=== PATIENT | male | born 1960 | race Two or more races ===

== ENCOUNTER → 2022-03-11 | Emergency (ER) | payer OTHER, MEDICARE ==
[~2022-03-11] VITALS: Ht 160 cm; Wt 63.6 kg
[~2022-03-11] MED LIST: HYDR1TAB97 PO; KETOROLAC TROMETH 60MG/2ML VIAL IV ONE; ONDA-144 PO; ONDANSETRON HCL 4 MG/2 ML VIAL IV ONE; PIPERACILLIN-TAZOB 3.375GM 100 ML IV ONE; PROP10TA57 PO; SODIUM CHLORIDE 0.9% 1,000 ML IV ONE; TAM04C PO; TAMSULOSIN HYDROCHLORIDE 0.4 MG CAP PO ONE; fentaNYL CITRATE 100 MCG/2 ML VL IV ONE
[2022-03-11 19:40] LABS: Urine Amorphous Crystal FEW /hpf (None Seen); Urine Bacteria NONE SEEN /hpf (None Seen); Urine Blood 1+ /uL (Negative); Urine Specific Gravity 1.012 (1.001-1.035); Urine WBC <1 /hpf (0 - 3)
[2022-03-11 20:52] LABS: Basophils # (auto) 0 10 ^3/uL (0-0.2); Basophils % (auto) 0.2 % (0.0-2.0); Eosinophils # (auto) 0.1 10 ^3/uL (0-0.8); Eosinophils % (auto) 0.3 % (0.0-7.0); Hematocrit 48.9 % (41.0-53.0); Hemoglobin 16.7 g/dL (13.5-17.5); Lymphocytes # (auto) 5.7 10 ^3/uL (0.4-5.4); Lymphocytes % (auto) 26.3 % (10.0-50.0); Mean Corpuscular Hemoglobin 30.5 pg (28.0-32.0); Mean Corpuscular Hgb Conc. 34.1 g/dL (32.0-36.0); Mean Corpuscular Volume 89.7 fL (80.0-100.0); Monocytes % (auto) 4.7 % (0.0-12.0); Neutrophils # (auto) 14.8 10 ^3/uL (1.6-8.6); Neutrophils % (auto) 68.5 % (37.0-80.0); Nucleated Red Blood Cells % 0.2 %; Red Blood Cells 5.46 10^6/uL (4.5-5.90); Red Cell Distribution Width 13.7 % (11.8-14.3); White Blood Cell 21.6 10^3/uL (4.4-10.8)
[2022-03-11 20:57] LABS: Albumin 4.3 g/dL (3.4-5.0); Calcium 8.8 mg/dL (8.5-10.1); Potassium 4.1 mmol/L (3.5-5.1)
[2022-03-11 21:01] LABS: BUN/Creatinine Ratio 19.8; Bilirubin, Total 1.6 mg/dL (0.2-1.0); Total Protein 7.4 g/dL (6.4-8.2)
[2022-03-11 21:43] VITALS: BP 168/99
== END | disposition home or self-care (01) ==
LOC: EDUNIT# 18:33 → EDBD 18:49 → ER 18:49
DX: N13.1 Hydronephrosis with ureteral stricture, not elsewhere classified (principal); N20.0 Calculus of kidney; D72.829 Elevated white blood cell count, unspecified; I10 Essential (primary) hypertension; Z79.899 Other long term (current) drug therapy; Z90.89 Acquired absence of other organs
CPT/HCPCS: 36415; 74176; 80053; 81001; 83605; 83690; 84484; 85025; 93005; 96361; 96365; 96366; 96375; 96376; 99285; J1885; J2405; J2543; J3010; J7030

== ENCOUNTER 2022-03-12 08:28 | Inpatient (IN) | payer OTHER, MEDICARE ==
[~2022-03-12] VITALS: Ht 170.2 cm; Wt 66.7 kg
[~2022-03-12 08:28] MED LIST changes: -KETOROLAC TROMETH 60MG/2ML VIAL IV ONE; -ONDANSETRON HCL 4 MG/2 ML VIAL IV ONE; -PIPERACILLIN-TAZOB 3.375GM 100 ML IV ONE; -PROP10TA57 PO; -SODIUM CHLORIDE 0.9% 1,000 ML IV ONE; -TAMSULOSIN HYDROCHLORIDE 0.4 MG CAP PO ONE; -fentaNYL CITRATE 100 MCG/2 ML VL IV ONE
[2022-03-12 09:16] LABS: Basophils # (auto) 0.1 10 ^3/uL (0-0.2); Basophils % (auto) 0.4 % (0.0-2.0); Eosinophils # (auto) 0 10 ^3/uL (0-0.8); Eosinophils % (auto) 0.3 % (0.0-7.0); Hematocrit 48.5 % (41.0-53.0); Hemoglobin 16.4 g/dL (13.5-17.5); Lymphocytes # (auto) 2.6 10 ^3/uL (0.4-5.4); Lymphocytes % (auto) 17.7 % (10.0-50.0); Mean Corpuscular Hemoglobin 30.9 pg (28.0-32.0); Mean Corpuscular Hgb Conc. 33.9 g/dL (32.0-36.0); Mean Corpuscular Volume 91.3 fL (80.0-100.0); Monocytes # (auto) 1.2 10 ^3/uL (0-1.3); Monocytes % (auto) 7.8 % (0.0-12.0); Neutrophils # (auto) 10.9 10 ^3/uL (1.6-8.6); Neutrophils % (auto) 73.8 % (37.0-80.0); Nucleated Red Blood Cells % 0.1 %; Red Blood Cells 5.31 10^6/uL (4.5-5.90); Red Cell Distribution Width 14.3 % (11.8-14.3); White Blood Cell 14.8 10^3/uL (4.4-10.8)
[2022-03-12] MEDS ORDERED: IOHEXOL 300 MG/ML 100ML BOTTLE IJ ONE (09:30)
[2022-03-12 09:36] LABS: Albumin 4.2 g/dL (3.4-5.0); BUN/Creatinine Ratio 18.1; Calcium 8.8 mg/dL (8.5-10.1); Potassium 4.5 mmol/L (3.5-5.1)
[2022-03-12 09:39] LABS: Bilirubin, Total 1.2 mg/dL (0.2-1.0); Total Protein 7.8 g/dL (6.4-8.2)
[2022-03-12] MEDS ORDERED: HYDROcodone-ACET 5/325MG TAB PO ONE (10:45)
[2022-03-12] MEDS ORDERED: LACTATED RINGER'S 1,000 ML IV ONE (10:45)
[2022-03-12] MEDS ORDERED: cefTRIAXone 1GM/50ML D5W 50 ML IV ONE (10:45)
[2022-03-12] MEDS ORDERED: ACETAMINOPHEN 325 MG TAB PO ONE (12:15)
[2022-03-12] MEDS ORDERED: ACETAMINOPHEN 325 MG TAB PO PRN (14:00)
[2022-03-12] MEDS: SODIUM CHLORIDE 0.9% 1,000 ML IV SCH (14:17)
[2022-03-13 06:16] LABS: Basophils # (auto) 0 10 ^3/uL (0-0.2); Basophils % (auto) 0.2 % (0.0-2.0); Eosinophils # (auto) 0 10 ^3/uL (0-0.8); Eosinophils % (auto) 0.5 % (0.0-7.0); Hematocrit 44.7 % (41.0-53.0); Hemoglobin 14.9 g/dL (13.5-17.5); Lymphocytes # (auto) 1.6 10 ^3/uL (0.4-5.4); Lymphocytes % (auto) 19.1 % (10.0-50.0); Mean Corpuscular Hemoglobin 30.5 pg (28.0-32.0); Mean Corpuscular Hgb Conc. 33.4 g/dL (32.0-36.0); Mean Corpuscular Volume 91.2 fL (80.0-100.0); Monocytes # (auto) 0.6 10 ^3/uL (0-1.3); Monocytes % (auto) 7.4 % (0.0-12.0); Neutrophils # (auto) 6.1 10 ^3/uL (1.6-8.6); Neutrophils % (auto) 72.8 % (37.0-80.0); Nucleated Red Blood Cells % 0.1 %; Red Cell Distribution Width 14.2 % (11.8-14.3); White Blood Cell 8.4 10^3/uL (4.4-10.8)
[2022-03-13 06:33] LABS: Albumin 3.4 g/dL (3.4-5.0); Calcium 8.1 mg/dL (8.5-10.1); Potassium 4.1 mmol/L (3.5-5.1)
[2022-03-13 06:37] LABS: BUN/Creatinine Ratio 20.7; Bilirubin, Total 1.2 mg/dL (0.2-1.0); Total Protein 6.4 g/dL (6.4-8.2)
[2022-03-13 06:55] VITALS: BP 170/89
[2022-03-13] MEDS ORDERED: PROP10TA57 PO (07:54)
[2022-03-13 08:00] VITALS: BP 170/89
[2022-03-13] MEDS: cefTRIAXone 1GM/50ML D5W 50 ML IV SCH (09:30)
[2022-03-13] MEDS: ENOXAPARIN SOD 40 MG/0.4 ML SYRINGE SC SCH ×2 (09:31→09:37)
[2022-03-13] MEDS: SODIUM CHLORIDE 0.9% 1,000 ML IV SCH ×3 (09:31→20:00)
[2022-03-13] MEDS: TAMSULOSIN HYDROCHLORIDE 0.4 MG CAP PO SCH (09:31)
[2022-03-13 12:00] VITALS: BP 147/80
[2022-03-13] MEDS ORDERED: PROPRANOLOL HCL 20 MG TAB PO ONE (13:00)
[2022-03-13] MEDS ORDERED: ONDANSETRON HCL 4 MG/2 ML VIAL IV PRN (13:00)
[2022-03-13] MEDS ORDERED: MANNITOL FTV 25% 12.5 GM/50 ML 50 ML IV ONE (13:15)
[2022-03-13] MEDS: HYDROcodone-ACET 5/325MG TAB PO PRN (14:02)
[2022-03-13 15:43] LABS: Urine Bacteria NONE SEEN /hpf (None Seen); Urine Blood Negative /uL (Negative); Urine Specific Gravity 1.013 (1.001-1.035); Urine WBC 1 /hpf (0 - 3)
[2022-03-13 17:00] VITALS: BP 145/83
[2022-03-13] MEDS: PROPRANOLOL HCL 20 MG TAB PO SCH (21:42)
[2022-03-13 22:00] VITALS: BP 120/59
[2022-03-14] MEDS: MORPHINE SULFATE INJ 2 MG/ml SYRG IV PRN ×2 (02:09→12:17)
[2022-03-14 05:00] VITALS: BP 146/74
[2022-03-14 06:39] LABS: Basophils # (auto) 0 10 ^3/uL (0-0.2); Basophils % (auto) 0.4 % (0.0-2.0); Eosinophils # (auto) 0.1 10 ^3/uL (0-0.8); Hematocrit 41.3 % (41.0-53.0); Hemoglobin 14.6 g/dL (13.5-17.5); Lymphocytes # (auto) 2.1 10 ^3/uL (0.4-5.4); Mean Corpuscular Hemoglobin 31.9 pg (28.0-32.0); Mean Corpuscular Hgb Conc. 35.3 g/dL (32.0-36.0); Mean Corpuscular Volume 90.3 fL (80.0-100.0); Monocytes # (auto) 0.6 10 ^3/uL (0-1.3); Neutrophils # (auto) 5.9 10 ^3/uL (1.6-8.6); Neutrophils % (auto) 67.6 % (37.0-80.0); Red Blood Cells 4.58 10^6/uL (4.5-5.90); Red Cell Distribution Width 13.9 % (11.8-14.3); White Blood Cell 8.8 10^3/uL (4.4-10.8)
[2022-03-14] MEDS: SODIUM CHLORIDE 0.9% 1,000 ML IV SCH ×2 (06:57→14:37)
[2022-03-14 07:12] LABS: BUN/Creatinine Ratio 19.2; Calcium 7.9 mg/dL (8.5-10.1); Potassium 4.5 mmol/L (3.5-5.1)
[2022-03-14 09:00] VITALS: BP 138/66
[2022-03-14] MEDS: cefTRIAXone 1GM/50ML D5W 50 ML IV SCH (09:47)
[2022-03-14] MEDS: TAMSULOSIN HYDROCHLORIDE 0.4 MG CAP PO SCH (09:47)
[2022-03-14] MEDS: PROPRANOLOL HCL 20 MG TAB PO SCH ×2 (09:48→21:45)
[2022-03-14 13:00] VITALS: BP 137/65
[2022-03-14] MEDS ORDERED: ALUM & MAG HYDROX-SIMETH LIQ(MAALOX) 30 ML PO PRN (13:45)
[2022-03-14] MEDS ORDERED: LACTULOSE 20Gm/30ML SOLN PO ONE (13:45)
[2022-03-14 16:47] VITALS: BP 147/74
[2022-03-14] MEDS: HYDROcodone-ACET 5/325MG TAB PO PRN (16:52)
[2022-03-14 20:41] VITALS: BP 147/75
== END 2022-03-14 22:35 | disposition short-term general hospital (02) | DRG 871 ==
LOC: ER 08:28 → OVERFLOW 13:58 → WEST WING 03-13 06:24
PROVIDERS: ADMIT Nurse Practitioner Family; ATTEND Internal Medicine
DX: A41.9 Sepsis, unspecified organism (principal); N17.0 Acute kidney failure with tubular necrosis; N13.6 Pyonephrosis; I10 Essential (primary) hypertension; K74.60 Unspecified cirrhosis of liver; Z20.822 Contact with and (suspected) exposure to COVID-19; R73.9 Hyperglycemia, unspecified; B19.20 Unspecified viral hepatitis C without hepatic coma; Z82.49 Family history of ischemic heart disease and other diseases of the circulatory system; Z87.442 Personal history of urinary calculi; Z90.49 Acquired absence of other specified parts of digestive tract
CPT/HCPCS: 36415; 74018; 74177; 76775; 80048; 80053; 81001; 85025; 87040; 87086; 87426; 96361; 96365; G0378; J0696